=== PATIENT | male | born 1985 | race African-American/Black ===

== ENCOUNTER 2019-05-25 08:02 | Emergency (ER) | payer OTHER, BC ==
[2019-05-25 08:10] VITALS: BP 153/107; PULSE 92; TEMP 98.1; BMI 41.5
[2019-05-25] MEDS ORDERED: IBUPROFEN 400 MG TABLET (FP) PO ONE ×2 (08:41→08:50)
[2019-05-25] MEDS ORDERED: LIDOCAINE 5% TOPICAL PATCH TP ONE (08:41)
[2019-05-25] MEDS ORDERED: LIDOCAINE 5% TOPICAL PATCH ONE (08:50)
--- NOTE | 2019-05-25 08:52 | PDOC ---
History of Present Illness - General Chief Complaint: Back Pain Stated Complaint: LOWER BACK INJURY Time Seen by Provider: 05/25/19 08:34 History Source: Patient Exam Limitations: No Limitations Past History - Past Medical History Allergies/Adverse Reactions: Allergies Allergy/AdvReac Type Severity Reaction Status Date / Time No Known Allergies Allergy Verified 07/13/16 15:23 Home Medications: Ambulatory Orders Hydrochlorothiazide [Hctz -] 25 mg PO DAILY 07/13/16 Lisinopril [Zestril] 2.5 mg PO ASDIR 07/13/16 metFORMIN HCL [Metformin HCl] 500 mg PO ASDIR 07/13/16 Lidocaine 5% Patch [Lidoderm -] 1 patch TP DAILY #7 patch 05/25/19 Diabetes: Yes Disorders: Yes (proteinuria) HTN: Yes - Immunization History Td Vaccination: Yes - Suicide/Smoking/Psychosocial Hx Smoking History: Never smoked Number of Cigarettes Smoked Daily: 0 Information on smoking cessation initiated: No Hx Alcohol Use: No Drug/Substance Use Hx: No *Physical Exam - Vital Signs Last Vital Signs Temp Pulse Resp BP Pulse Ox 98.1 F 92 H 16 153/107 H 99 05/25/19 08:06 05/25/19 08:06 05/25/19 08:06 05/25/19 08:06 05/25/19 08:06 - Physical Exam General Appearance: No: Apparent Distress Respiratory/Chest: positive: Lungs Clear, Normal Breath Sounds. negative: Respiratory Distress Cardiovascular: positive: Regular Rhythm, Regular Rate, S1, S2. negative: Murmur Gastrointestinal/Abdominal: positive: Normal Bowel Sounds, Soft. negative: Tender, Distended, Guarding, Rebound Musculoskeletal: positive: Other (mild TTP along R lower posterior ribs). negative: CVA Tenderness, Muscle Spasm, Vertebral Tenderness Integumentary: positive: Normal Color Neurologic: positive: professor of theater II-XII NML intact, Fully Oriented, Alert, Normal Mood/ Affect, Motor Strength 5/5 Medical Decision Making - Medical Decision Making 33 y/o M hx of appendectomy 2018 presents with RLQ abdominal pain radiating to lower back since 2 days ago after taking out trash. States abdominal pain is now gone, but lower back pain persists. Back pain is worse with movement of body. Has not tried taking anything for pain. Denies fever, sob, cp, n/v/d, testicular pain, urinary complaints. Probably MSK pain; less suspicious for acute abdomen Also less suspicious for UTI or kidney stones, but given location of pain, will send for UA to check for blood Plan: UA, Motrin, Lidocaine patch, reassess 05/25/19 08:49 UA reviewed, 1+ leuks, no blood, no significant pyuria, no nitrites Unlikely UTI Stable for dc 05/25/19 09:01 *DC/Admit/Observation/Transfer Diagnosis at time of Disposition: Musculoskeletal back pain - Discharge Dispostion Disposition: HOME Condition at time of disposition: Stable Decision to Admit order: No - Prescriptions Prescriptions: Lidocaine 5% Patch [Lidoderm -] 1 patch TP DAILY #7 patch - Referrals - Patient Instructions Printed Discharge Instructions: DI for Low Back Pain Additional Instructions: Thank you for choosing [facility]. It was a pleasure taking care of you. You may take Motrin 600 mg every 6 hours by mouth as needed for mild to moderate pain. Take Motrin with food. Apply Lidocaine patch for 12 hours and then keep off for 12 hours Apply warm compresses to site Follow-up with your doctor in 2 days Return to the Emergency Department if your symptoms worsen or persist or have other concerning symptoms. - Post Discharge Activity Forms/Work/School Notes: Back to Work
[2019-05-25 08:58] LABS: EPI CELLS 1.4 /HPF (0-5/HPF); HYALINE CASTS 1 /lpf (0-8); PH,URINE 6.5 (5.0-8.0); URINE APPEARANCE CLEAR; URINE BACTERIA 1.9 /hpf (NEGATIVE); URINE BILIRUBIN NEGATIVE (NEGATIVE); URINE COLOR YELLOW; URINE GLUCOSE (UA) NEGATIVE (NEGATIVE); URINE KETONE NEGATIVE (NEGATIVE); URINE LEUK ESTERASE 1+ (NEGATIVE); URINE NITRITE NEGATIVE (NEGATIVE); URINE PROTEIN 1+ (NEGATIVE); URINE RBC 1 /hpf (0-4); URINE WBC 9 /hpf (0-5)
== END 2019-05-25 09:08 | disposition home or self-care (01) ==
LOC: JER 08:02 → JERFT 08:02
DX: M54.5 Low back pain (principal); I10 Essential (primary) hypertension; E11.9 Type 2 diabetes mellitus without complications; Z79.84 Long term (current) use of oral hypoglycemic drugs
CPT/HCPCS: 81003; 99282-25

== ENCOUNTER 2024-09-09 10:46 | Observation (INO) | payer BC ==
[2024-09-09 10:58] VITALS: BMI 41.3
[2024-09-09] MEDS ORDERED: dilTIAZem HCL 50 MG/10 ML - 10 ML VIAL ONE (11:26)
[2024-09-09 11:33] LABS: VENOUS BASE EXCESS 0.2 mmol/L (-2-2); VENOUS O2 SATURATION 33.3 % (70-80); VENOUS PCO2 60.8 mmHg (38-52); VENOUS PH 7.291 (7.310-7.410)
[2024-09-09] MEDS: LACTATED RINGERS SOLUTION 1000 ML INFUS.BAG IV ONE (11:45)
[2024-09-09] MEDS: dilTIAZem HCL 50 MG/10 ML - 10 ML VIAL IVPUSH ONE (11:45)
[2024-09-09 11:46] LABS: INR 0.98 (0.83-1.09); PROTHROMBIN TIME (PATIENT) 11.1 SEC (9.7-13.0)
[2024-09-09] MEDS ORDERED: dilTIAZem HCL 60 MG TABLET ONE (11:46)
[2024-09-09 11:47] LABS: BASO % 0.6 % (0-2.0); EOS % 1.3 % (0-4.5); HEMATOCRIT 49.3 % (35.4-49); HEMOGLOBIN 16.5 GM/dL (11.7-16.9); LYMPH % 33.1 % (8-40); MCH 27.5 pg (25.7-33.7); MCHC 33.4 g/dl (32.0-35.9); MEAN CELL VOLUME 82.3 fl (80-96); MEAN PLT VOLUME 9.3 fl (7.5-11.1); MONO % 7.3 % (3.8-10.2); NEUT % 57.7 % (42.8-82.8); PLATELET COUNT 165 10^3/uL (134-434); RBC 5.99 M/mm3 (4.00-5.60); RDW 15.7 % (11.9-15.9)
[2024-09-09] MEDS: dilTIAZem HCL 60 MG TABLET PO ONE (11:47)
[2024-09-09 11:49] LABS: ACTIVATED PTT 32.9 SECONDS (25.2-36.5)
[2024-09-09 11:53] LABS: POTASSIUM 4.5 mmol/L (3.5-5.1)
[2024-09-09 11:55] LABS: ALBUMIN 3.8 g/dl (3.4-5.0); CALCIUM 9.4 mg/dL (8.5-10.1)
[2024-09-09 11:56] LABS: BLOOD UREA NITROGEN 10.4 mg/dL (7-18)
[2024-09-09 11:59] LABS: CREATININE 1.2 mg/dL (0.55-1.3)
[2024-09-09 12:00] LABS: BILIRUBIN,TOTAL 0.4 mg/dL (0.2-1); TOT PROT 7.4 g/dl (6.4-8.2)
[2024-09-09] MEDS ORDERED: APIXABAN 5 MG TABLET ONE (12:03)
[2024-09-09 12:04] LABS: N-TERMINAL BNP 128.6 pg/ml (5-125)
[2024-09-09] MEDS: APIXABAN 5 MG TABLET PO ONE (12:13)
[2024-09-09 13:39] VITALS: RESP 18
[2024-09-09] MEDS: PANTOPRAZOLE 40 MG TABLET PO SCH (13:51)
[2024-09-09] MEDS: INSULIN ASPART SLIDING SCALE (NOVOLOG) 1 VIAL SQ SCH (16:58)
[2024-09-09] MEDS: metoPROLOL SUCCINATE 25 MG TAB.SR.24H (FP) PO SCH (17:28)
[2024-09-09] MEDS: APIXABAN 5 MG TABLET PO SCH (21:17)
[2024-09-10 07:14] VITALS: BP 136/69; PULSE 93; TEMP 98.2
[2024-09-10] MEDS ORDERED: LISINOPRIL 5 MG TABLET PO SCH (10:00)
[2024-09-10] MEDS ORDERED: HYDROCHLOROTHIAZIDE 25 MG TABLET (FP) PO SCH (10:00)
[2024-09-10] MEDS: LISINOPRIL 5 MG TABLET PO SCH (11:04)
== END 2024-09-10 14:30 | disposition home or self-care (01) ==
LOC: JER 10:46 → INTOOBSV 12:14 → UNDOADMOB 12:14 → JERBED 12:14 → J4W 13:17 → JERBED 13:17 → J4W 09-10 11:44
PROVIDERS: ADMIT Internal Medicine; ATTEND Internal Medicine
PROC: 3E033GC Introduction of Other Therapeutic Substance into Peripheral Vein, Percutaneous Approach (ICD-10-PCS; principal; 2024-09-10)
PROC: 3E0337Z Introduction of Electrolytic and Water Balance Substance into Peripheral Vein, Percutaneous Approach (ICD-10-PCS; 2024-09-10)
DX: I48.91 Unspecified atrial fibrillation (principal); R00.2 Palpitations; E11.9 Type 2 diabetes mellitus without complications; F10.99 Alcohol use, unspecified with unspecified alcohol-induced disorder; I10 Essential (primary) hypertension; Z90.49 Acquired absence of other specified parts of digestive tract; R01.1 Cardiac murmur, unspecified; E66.9 Obesity, unspecified
CPT/HCPCS: 0241U-QW; 36415; 71045-TC-FY; 80053; 82010; 82803; 82962; 83735; 83880; 84443; 84484; 85025; 85610; 85730; 93005; 93010; 99291; G0378